=== PATIENT | male | born 2000 | race Caucasian/White ===

== ENCOUNTER 2020-12-27 15:42 | Emergency (ER) | payer OTHER ==
[~2020-12-27] VITALS: Ht 188 cm; Wt 69.9 kg
[2020-12-27] MEDS ORDERED: METHOCARBAMOL 750 MG TABLET PO ONE (16:00)
[2020-12-27] MEDS: KETOROLAC 30 MG/1 ML IM ONE ×2 (16:00→16:53)
[2020-12-27] MEDS ORDERED: KETOROLAC 60 MG/2 ML ONE (16:50)
[2020-12-27] MEDS ORDERED: METHOCARBAMOL 750 MG TABLET ONE (16:50)
--- NOTE | 2020-12-27 16:57 | NUR ---
pt presents to ed with c/o midline lower back pain s/p lifting heavy box yesterday. pt denies weakness, denies bowel/bladder dysfunction. 5/5 strength to bilateral LE. pt refuses toradol stating he is "too afraid of needles". awaiting dc order and paperwork.
[2020-12-27 18:01] VITALS: BP 115/64
--- NOTE | 2020-12-27 18:32 | NUR ---
Pt given dc instructions and script, educated regarding rx for robaxan and naproxen. pt instructed to follow up with pcp and workmans comp. pt reports impoved lower back pain. pt a&o, resps even and unlabored, ambualory to dc desk with stedy gait. pt educated not to drive d/t robaxan admin, girlfriend with pt to drive pt home. all questions answered.
== END 2020-12-27 18:33 | disposition home or self-care (01) ==
LOC: ED 17:45
DX: S39.012A Strain of muscle, fascia and tendon of lower back, initial encounter (principal); X58.XXXA Exposure to other specified factors, initial encounter; Y93.89 Activity, other specified; Y92.89 Other specified places as the place of occurrence of the external cause; Y99.8 Other external cause status
CPT/HCPCS: 72110; 99283; J1885